=== PATIENT | male | born 1985 | race Caucasian/White ===

== ENCOUNTER 2016-08-12 11:43 | Emergency (ER) | payer BC ==
--- NOTE | 2016-08-12 11:49 | EDM.PDOC ---
ED HPI GENERAL MEDICAL PROBLEM - General Chief Complaint: Lower Extremity Injury/Pain Stated Complaint: PT HURT RT FOOT Time Seen by Provider: 08/12/16 11:46 - History of Present Illness INITIAL COMMENTS - FREE TEXT/NARRATIVE: HISTORY AND PHYSICAL: History of present illness: Patient is 31-year-old white male with a concern of right foot pain that started on he denies any trauma he denies history of gouty arthritis denies fever chills nausea vomiting or any other complaints Review of systems: As per history of present illness and below otherwise all systems reviewed and negative. Past medical history: As per history of present illness and as reviewed below otherwise noncontributory. Surgical history: As per history of present illness and as reviewed below otherwise noncontributory. Social history: No reported history of drug or alcohol abuse. Family history: As per history of present illness and as reviewed below otherwise noncontributory. Physical exam: HEENT: Atraumatic, normocephalic, pupils reactive, negative for conjunctival pallor or scleral icterus, mucous membranes moist, throat clear, neck supple, nontender, trachea midline. Lungs: Clear to auscultation, breath sounds equal bilaterally, chest nontender. Heart: S1S2, regular, negative for clicks, rubs, or JVD. Abdomen: Soft, nondistended, nontender. Negative for masses or hepatosplenomegaly. Negative for costovertebral tenderness. Pelvis: Stable nontender. Genitourinary: Deferred. Rectal: Deferred. Extremities: Patient has tenderness over the dorsal aspect of his right forefoot there is no erythema no warmth no crepitation CMS neurovascular exam are unremarkable Neuro: Awake, alert, oriented. Cranial nerves II through XII unremarkable. Cerebellum unremarkable. Motor and sensory unremarkable throughout. Exam nonfocal. Diagnostics: CBC CMP uric acid x-ray right Therapeutics: To be determined Impression: #1 acute right foot pain Definitive disposition and diagnosis as appropriate pending reevaluation and review of above. - Related Data Allergies Allergy/AdvReac Type Severity Reaction Status Date / Time No Known Allergies Allergy Verified 08/12/16 11:47 Home Meds: Home Meds . [No Known Home Meds] 07/12/13 [History] Past Medical History - Past Health History Medical/Surgical History: Denies Medical/Surgical History Social & Family History - Alcohol Use Days Per Week of Alcohol Use: 2 Number of Drinks Per Day: 8 Total Drinks Per Week: 16 - Recreational Drug Use Recreational Drug Use: No Review of Systems - Review of Systems Review Of Systems: ROS reveals no pertinent complaints other than HPI. ED EXAM, GENERAL - Physical Exam Exam: See Below (See dictated) Course - Vital Signs Last Recorded V/S: Last Vital Signs Temp 36.8 C 08/12/16 11:48 Pulse 80 08/12/16 11:48 Resp 16 08/12/16 11:48 BP 131/83 08/12/16 11:48 Pulse Ox 95 08/12/16 11:48 - Orders/Labs/Meds Orders: Active Orders 24 hr Category Date Time Status Foot 2V Rt [CR] Stat Exams 08/12/16 11:48 Taken COMPREHENSIVE METABOLIC PN,CMP [CHEM] Stat Lab 08/12/16 12:10 Received URIC ACID [CHEM] Stat Lab 08/12/16 12:10 Received Labs: Laboratory Tests 08/12/16 Range/Units 12:10 WBC 7.83 (4.0-11.0) K/uL RBC 4.98 (4.50-5.90) M/uL Hgb 14.4 (13.0-17.0) g/dL Hct 43.1 (38.0-50.0) % MCV 86.5 (80.0-98.0) fL MCH 28.9 (27.0-32.0) pg MCHC 33.4 (31.0-37.0) g/dL RDW Std Deviation 40.5 (28.0-62.0) fl RDW Coeff of Domenic 13 (11.0-15.0) % Plt Count 250 (150-400) K/uL MPV 10.80 (7.40-12.00) fL Neut % (Auto) 57.1 (48.0-80.0) % Lymph % (Auto) 32.1 (16.0-40.0) % [place] % (Auto) 8.0 (0.0-15.0) % Eos % (Auto) 2.4 (0.0-7.0) % Baso % (Auto) 0.4 (0.0-1.5) % Neut # (Auto) 4.5 (1.4-5.7) K/uL Lymph # (Auto) 2.5 H (0.6-2.4) K/uL [place] # (Auto) 0.6 (0.0-0.8) K/uL Eos # (Auto) 0.2 (0.0-0.7) K/uL Baso # (Auto) 0.0 (0.0-0.1) K/uL Nucleated RBC % 0.0 /100WBC Nucleated RBCs # 0 K/uL Departure - Departure Time of Disposition: 12:37 Disposition: Home, Self-Care 01 Condition: good Clinical Impression: Foot pain - Discharge Information Forms: ED Department Discharge Additional Instructions: The following information is given to patients seen in the emergency department who are being discharged to home. This information is to outline your options for follow-up care. We provide all patients seen in our emergency department with a follow-up referral. The need for follow-up, as well as the timing and circumstances, are variable depending upon the specifics of your emergency department visit. If you don't have a primary care physician on staff, we will provide you with a referral. We always advise you to contact your personal physician following an emergency department visit to inform them of the circumstance of the visit and for follow-up with them and/or the need for any referrals to a consulting specialist. The emergency department will also refer you to a specialist when appropriate. This referral assures that you have the opportunity for followup care with a specialist. All of these measure are taken in an effort to provide you with optimal care, which includes your followup. Under all circumstances we always encourage you to contact your private physician who remains a resource for coordinating your care. When calling for followup care, please make the office aware that this follow-up is from your recent emergency room visit. If for any reason you are refused follow-up, please contact the [facility] emergency department at and asked to speak to the emergency department charge nurse. Crutches as directed follow up primary medical doctor/podiatry one to 2 days Ultram as prescribed return as needed as discussed - My Orders Last 24 Hours: My Active Orders 08/12/16 11:48 Foot 2V Rt [CR] Stat 08/12/16 12:10 COMPREHENSIVE METABOLIC PN,CMP [CHEM] Stat URIC ACID [CHEM] Stat - Assessment/Plan Last 24 Hours: My Active Orders 08/12/16 11:48 Foot 2V Rt [CR] Stat 08/12/16 12:10 COMPREHENSIVE METABOLIC PN,CMP [CHEM] Stat URIC ACID [CHEM] Stat
[2016-08-12 12:40] LABS: CHLORIDE,CL 110 mmol/L (98-110); SODIUM,NA 141 mmol/L (136-146)
[2016-08-12 12:54] VITALS: BP 121/79
--- NOTE | 2016-08-14 14:27 | CR ---
EXAM DATE: 08/12/16 PATIENT'S AGE: 31 Patient: ALL ESCALANTE Facility: [place], [place] Site . Site : [id number] Study: XRay Extremity Right [id number] 12:23:56 PM Ordering Physician: Doctor Sheriff Final Report: Indication: Pain, no recent injury. Findings: Soft tissue structures are intact. Bony mineralization is normal. Joint spaces are preserved and there is no acute fracture nor dislocation. Impression: No acute abnormality right foot. Dictated by Madison Wasserman MD @ Aug 12 2016 12:45PM (Electronic Signature) Report Signed by Proxy. ELVER
== END 2016-08-12 13:00 | disposition home or self-care (01) ==
LOC: MW.ED 11:43
DX: M79.671 Pain in right foot (principal); E79.0 Hyperuricemia without signs of inflammatory arthritis and tophaceous disease
CPT/HCPCS: 36415; 73620-26-RT; 73620-RT; 80053; 84550; 85025; 99282; 99283